=== PATIENT | male | born 1940 | race Two or more races ===

== ENCOUNTER 2019-06-09 16:53 | Inpatient (IN) | payer OTHER, MEDICAID ==
[~2019-06-09] VITALS: Ht 157.5 cm; Wt 91.2 kg
[2019-06-09] MEDS ORDERED: ACETAMINOPHEN 325MG TABLET PO STA (17:07)
[2019-06-09 18:01] LABS: BASOPHILS % 0.3 % (0.0-2.0); HEMATOCRIT. 43.8 % (42.0-52.0); HEMOGLOBIN. 14.9 g/dL (14.0-18.0); LYMPHOCYTES % 9.5 % (20.0-50.0); MEAN CORPUSCULAR HEMOGLOBIN 28.4 pg (28.0-32.0); MEAN CORPUSCULAR VOLUME 83.5 fL (80.0-94.0); MEAN PLATELET VOLUME 9.6 fl (7.4-10.4); MONOCYTES % 5.3 % (2.0-8.0); NEUTROPHILS % 84.9 % (40.0-76.0); PLATELET 140 x1000/uL (130-400); RED BLOOD CELL COUNT 5.25 mill/uL (4.7-6.1); RED CELL DISTRIBUTION WIDTH 14.9 % (11.6-14.6)
[2019-06-09 18:05] LABS: CHLORIDE 97 mEq/L (98-107)
[2019-06-09] MEDS ORDERED: VANCOMYCIN 1 G PREMIX 200 ML IV ONE (18:30)
[2019-06-09] MEDS ORDERED: SODIUM CHLORIDE 0.9% 1000ML BAG (SEPSIS BOLUS) IV ONE (18:30)
[2019-06-09] MEDS ORDERED: PIPERACILLIN/TAZ 3.375G PREMIX 50 ML IV ONE (18:30)
[2019-06-09 20:31] LABS: CLARITY URINE CLEAR (CLEAR); COLOR URINE YELLOW (YELLOW); KETONES URINE NEGATIVE (NEGATIVE); LEUKOCYTE ESTERASE URINE NEGATIVE (NEGATIVE); NITRITE URINE NEGATIVE (NEGATIVE); OCCULT BLOOD URINE 1+ (NEGATIVE); PH URINE 6.5 (4.5-8.0); PROTEIN URINE 1+ (NEGATIVE); SPECIFIC GRAVITY URINE 1.012 (1.005-1.030)
[2019-06-09] MEDS: SODIUM CHLORIDE 0.45% 1,000 ML IV SCH (21:16)
[2019-06-09] MEDS ORDERED: MORPHINE SULFATE 2 MG/ML CPJ (NOT FOR IM USE) IV PRN (21:30)
[2019-06-09] MEDS ORDERED: IPRATROPIUM/ALBUTEROL 0.5-3(2.5)MG/3ML NEB HHN PRN (21:30)
[2019-06-09] MEDS ORDERED: HYDRALAZINE 20MG/ML VIAL IV PRN (21:30)
[2019-06-09] MEDS ORDERED: DOCUSATE SODIUM 100MG CAPSULE PO PRN (21:30)
[2019-06-09] MEDS ORDERED: ONDANSETRON HCL 4MG/2ML INJ IV PRN (21:30)
[2019-06-09] MEDS ORDERED: MAGNESIUM/ALUMINUM HYDROXIDE/SIMETHICONE 30ML UDC PO PRN (21:30)
[2019-06-09] MEDS ORDERED: HYDROCODONE/ACETAMINOPHEN 10/325MG TABLET PO PRN (21:30)
[2019-06-09] MEDS ORDERED: GUAIFENESIN 200MG/10ML SUGAR FREE UDC PO PRN (21:30)
[2019-06-09] MEDS ORDERED: DIPHENHYDRAMINE 50MG/ML VIAL IV PRN (21:30)
[2019-06-09 23:06] LABS: HEPATITIS B SURFACE ANTIGEN NEGATIVE
[2019-06-09 23:35] LABS: HEPATITIS A AB IGM NEGATIVE (NEGATIVE)
[2019-06-09] MEDS ORDERED: ENOXAPARIN 40MG/0.4ML SYR SUBCUT NR (23:45)
[2019-06-09] MEDS ORDERED: POTASSIUM CHLORIDE 20MEQ TABLET SR PO SCH (23:48)
[2019-06-10] MEDS ORDERED: PIPERACILLIN/TAZ 3.375G PREMIX 50 ML IV SCH (02:00)
[2019-06-10 05:06] LABS: BASOPHILS % 0.3 % (0.0-2.0); HEMATOCRIT. 41.1 % (42.0-52.0); HEMOGLOBIN. 14.1 g/dL (14.0-18.0); LYMPHOCYTES % 8.6 % (20.0-50.0); MEAN CORPUSCULAR HEMOGLOBIN 28.8 pg (28.0-32.0); MEAN CORPUSCULAR VOLUME 83.8 fL (80.0-94.0); MEAN PLATELET VOLUME 9.5 fl (7.4-10.4); MONOCYTES % 11.5 % (2.0-8.0); NEUTROPHILS % 79.6 % (40.0-76.0); PLATELET 122 x1000/uL (130-400); RED BLOOD CELL COUNT 4.91 mill/uL (4.7-6.1); RED CELL DISTRIBUTION WIDTH 14.4 % (11.6-14.6)
[2019-06-10 05:15] LABS: CHLORIDE 104 mEq/L (98-107)
[2019-06-10 05:24] LABS: CREATINE KINASE 494 IU/L (39-308)
[2019-06-10 05:26] LABS: CREATINE KINASE MB FRACTION 4.6 ng/mL (0.5-3.6)
[2019-06-10 11:00] VITALS: BP 136/60
[2019-06-10 11:37] VITALS: BP 136/60
[2019-06-10 12:00] VITALS: BP 127/58
[2019-06-10] MEDS ORDERED: IPRATROPIUM/ALBUTEROL 0.5-3(2.5)MG/3ML NEB NEB SCH (12:00)
[2019-06-10] MEDS ORDERED: AMLO10TA4 PO (12:12)
[2019-06-10] MEDS ORDERED: LEVO25TA7 PO (12:12)
[2019-06-10] MEDS ORDERED: PANT40SU PO (12:12)
[2019-06-10] MEDS ORDERED: TAMS-11 PO (12:12)
[2019-06-10] MEDS ORDERED: CYAN50003 PO (12:12)
[2019-06-10 12:16] LABS: *AMPHETAMINES SCREEN URINE NEGATIVE (NEGATIVE); *BARBITURATES SCREEN URINE NEGATIVE (NEGATIVE); *BENZODIAZEPINES SCREEN URINE NEGATIVE (NEGATIVE); *COCAINE SCREEN URINE NEGATIVE (NEGATIVE)
[2019-06-10 12:17] LABS: METHADONE URINE SCREEN NEGATIVE (NEGATIVE); OPIATES URINE SCREEN NEGATIVE (NEGATIVE)
[2019-06-10 12:18] LABS: CANNABINOID URINE SCREEN NEGATIVE (NEGATIVE); PHENCYCLIDINE URINE SCREEN NEGATIVE (NEGATIVE)
[2019-06-10] MEDS: VANCOMYCIN HCL 750 MG in DEXT 5% WATER 250 ML IV SCH (14:26)
[2019-06-10 16:00] VITALS: BP 125/61
[2019-06-10] MEDS ORDERED: ALBUTEROL 6.7GM HFA INHALER ORI PRN (16:30)
[2019-06-10] MEDS: PIPERACILLIN/TAZOBACTAM 3.375 G in DEXT 5% WATER 100 ML IV SCH ×2 (17:33→21:11)
[2019-06-10] MEDS: SODIUM CHLORIDE 0.9% INJ 3ML FLUSH IVF SCH ×2 (17:34→22:16)
[2019-06-10] MEDS: ALBUTEROL 6.7GM HFA INHALER ORI SCH (17:34)
[2019-06-10 20:30] VITALS: BP 136/75
[2019-06-10] MEDS: GUAIFENESIN 600MG ER TABLET PO SCH (21:10)
[2019-06-10] MEDS: ACETAMINOPHEN 325MG TABLET PO PRN (21:10)
[2019-06-10] MEDS: CLONIDINE 0.1MG TABLET PO PRN (21:11)
[2019-06-10] MEDS: SODIUM CHLORIDE 0.45% 1,000 ML IV SCH (21:12)
[2019-06-10] MEDS: LORAZEPAM 2MG/ML CPJ IV PRN (23:13)
[2019-06-10 23:58] VITALS: BP 135/75
[2019-06-11] MEDS: VANCOMYCIN HCL 750 MG in DEXT 5% WATER 250 ML IV SCH ×2 (00:32→13:32)
[2019-06-11] MEDS: ALBUTEROL 6.7GM HFA INHALER ORI SCH ×2 (01:31→06:00)
[2019-06-11] MEDS: PIPERACILLIN/TAZOBACTAM 3.375 G in DEXT 5% WATER 100 ML IV SCH ×4 (03:54→18:37)
[2019-06-11] MEDS: SODIUM CHLORIDE 0.9% INJ 3ML FLUSH IVF SCH ×3 (06:52→21:19)
[2019-06-11 08:30] VITALS: BP 137/69
[2019-06-11] MEDS: GUAIFENESIN 600MG ER TABLET PO SCH ×2 (09:47→21:19)
[2019-06-11] MEDS: ASPIRIN 81MG TABLET PO SCH (09:48)
[2019-06-11] MEDS: ENOXAPARIN 40MG/0.4ML SYR SUBCUT SCH (09:49)
[2019-06-11 12:31] VITALS: BP 132/69
[2019-06-11 16:00] VITALS: BP 143/113
[2019-06-11 20:00] VITALS: BP 150/86
[2019-06-11] MEDS: SODIUM CHLORIDE 0.45% 1,000 ML IV SCH (21:19)
[2019-06-12] VITALS (7 sets, daily range): BP systolic 124–160; BP diastolic 69–81
[2019-06-12] MEDS: PIPERACILLIN/TAZOBACTAM 3.375 G in DEXT 5% WATER 100 ML IV SCH ×4 (00:47→18:00)
[2019-06-12] MEDS: VANCOMYCIN HCL 750 MG in DEXT 5% WATER 250 ML IV SCH ×2 (00:48→13:51)
[2019-06-12] MEDS: LORAZEPAM 2MG/ML CPJ IV PRN (00:48)
[2019-06-12] MEDS: CLONIDINE 0.1MG TABLET PO PRN (00:48)
[2019-06-12] MEDS: ALBUTEROL 6.7GM HFA INHALER ORI SCH (05:29)
[2019-06-12] MEDS: SODIUM CHLORIDE 0.9% INJ 3ML FLUSH IVF SCH ×2 (05:29→14:00)
[2019-06-12 07:52] LABS: CHLORIDE 104 mEq/L (98-107)
[2019-06-12 08:03] LABS: CREATINE KINASE 520 IU/L (39-308)
[2019-06-12] MEDS: ENOXAPARIN 40MG/0.4ML SYR SUBCUT SCH (08:20)
[2019-06-12] MEDS: ASPIRIN 81MG TABLET PO SCH (08:21)
[2019-06-12] MEDS: GUAIFENESIN 600MG ER TABLET PO SCH (08:21)
[2019-06-12] MEDS ORDERED: POTASSIUM CHLORIDE 20MEQ TABLET SR PO SCH (11:00)
[2019-06-12] MEDS: ACETAMINOPHEN 325MG TABLET PO PRN (20:40)
[2019-06-13] MEDS ORDERED: VANCOMYCIN 1 G PREMIX 200 ML IV SCH
== END 2019-06-12 20:45 | disposition home or self-care (01) | DRG 871 ==
LOC: ER 16:53 → 7WST 20:58 → EEVIPCON 20:58 → EDBEDREQTM 21:51 → EDBEDREQ 21:51 → EDBEDREQSVC 21:51 → ENRESERV 06-10 08:30 → 7WST 06-10 14:11
PROVIDERS: ADMIT Internal Medicine; ATTEND Internal Medicine
DX: A41.9 Sepsis, unspecified organism (principal); J18.9 Pneumonia, unspecified organism; J96.00 Acute respiratory failure, unspecified whether with hypoxia or hypercapnia; E87.1 Hypo-osmolality and hyponatremia; E44.0 Moderate protein-calorie malnutrition; E87.2 Acidosis; I10 Essential (primary) hypertension; E78.00 Pure hypercholesterolemia, unspecified; E03.9 Hypothyroidism, unspecified; F17.210 Nicotine dependence, cigarettes, uncomplicated; E78.5 Hyperlipidemia, unspecified; E87.6 Hypokalemia; R74.0 Nonspecific elevation of levels of transaminase and lactic acid dehydrogenase [LDH]; R79.89 Other specified abnormal findings of blood chemistry; N40.0 Benign prostatic hyperplasia without lower urinary tract symptoms; D72.821 Monocytosis (symptomatic); E80.6 Other disorders of bilirubin metabolism; R74.8 Abnormal levels of other serum enzymes; Z79.890 Hormone replacement therapy; Z79.899 Other long term (current) drug therapy; Z78.9 Other specified health status; Z68.36 Body mass index [BMI] 36.0-36.9, adult; Z20.828 Contact with and (suspected) exposure to other viral communicable diseases
CPT/HCPCS: 36415; 71045; 80048; 80053; 80076; 80202; 80305; 81003; 82550; 82553; 83605; 83735; 83880; 84484; 85025; 86705; 86709; 86803; 87070; 87186; 87340; 87420; 87804; 93005; 99291; J1650; J2060; J2543; J3370; J7030; J7060